=== PATIENT | female | born 1965 | race Caucasian/White ===

== ENCOUNTER 2023-11-27 10:06 | Outpatient (AMB) | payer OTHER, SELFPAY ==
--- NOTE | 2023-11-27 13:37 | MHC.OFFWIV ---
Intake Vital Signs 11/27/23 13:39 Height 6 ft Weight 280 lb BMI 38.0 BP 128/82 Blood Pressure Location Rt brachial Pulse 95 Pulse Source Pulse Oximeter Temp 99.1 F Temp Source Oral Pulse Oximetry (%) 98 Oxygen Delivery Method Room Air Intake Visit Reasons: [employer]/ cough and sob([phone]) Intake Note: Pt is here today c/o coughing, bodyaches, headaches and SOB x10 days Allergies amoxicillin [AMOXICILLIN] Allergy (Unknown, Unverified 11/27/23 13:37) RASH codeine [CODEINE] Allergy (Unknown, Unverified 11/27/23 13:37) RASH gabapentin [GABAPENTIN] Allergy (Unknown, Unverified 11/27/23 13:37) UNKNOWN Do you need a note to return to daycare/school/sports/work: No HPI HPI Comments History of Present Illness Details This is a 58-year-old female with past medical history of hyperlipidemia, obstructive sleep apnea, cervical degenerative disc disease and asthma presenting for evaluation of shortness of breath, headache, cough and body aches that she has had for the past 10 days. Patient does report fevers of 101? for which she has taken Tylenol only. Patient denies having any recent sick contacts. Review of Systems Const All systems reviewed & are unremarkable except as noted in HPI and below Denies chills, Reports fever(s), Reports headache(s), Reports lethargy and Reports malaise Eyes Reports no additional complaints ENT Reports no additional complaints and Reports headache(s) Card Reports no additional complaints and Denies dyspnea Resp Reports cough, Denies hemoptysis, Denies pain with cough and Denies dyspnea Skin/Breast Reports system reviewed and no additional complaints, except as documented Neuro Reports headache(s) Physical Exam Vital Signs: Last Vital Signs Temp 99.1 F 11/27/23 13:39 Pulse 95 11/27/23 13:39 BP 128/82 11/27/23 13:39 Pulse Ox 98 11/27/23 13:39 Oxygen Delivery Method Room Air 11/27/23 13:39 BMI result Body Mass Index 38.0 Const General: cooperative, healthy appearing, comfortable and no acute distress Nutritional Appearance: overweight Orientation/consciousness: patient oriented x3 Limitations: no limitations HEENT Head: Yes normal to inspection Ears: hearing grossly normal bilaterally, external ears normal, TM's normal bilaterally and EAC's normal General nose exam: Normal external nose present Face and sinus: Yes normal facial exam and Yes sinuses nontender Mouth: Normal oral and palatal mucosa present and moist mucous membranes Teeth and gingiva: dentition normal Throat: Yes posterior oropharynx normal and Yes postnasal drainage Eyes Eyelids: Yes eyelids normal Conjunctivae: conjunctivae normal Sclerae: sclerae normal Pupils: Equal, round and reactive pupils present EOM: EOMs intact bilaterally Neck Lymphatic: no lymphadenopathy noted Resp Effort & Inspection: normal respiratory effort, no audible wheezes, Actively coughing, no respiratory distress, not tachypneic and no use of accessory muscles Auscultation: clear to auscultation bilaterally and diminished lung sounds Skin General skin exam: no rashes or lesions noted Neuro General: patient oriented x3 Cranial nerves: Yes Equal, round and reactive pupils present Psych Appearance: grossly normal Mental Status: mental status grossly normal Insight: Good insight present (Psych) Judgement: Good judgement present (Psych) Assessment & Plan Assessment & Plan (1) Febrile illness: Code(s): R50.9 - Fever, unspecified Plan: Tylenol or ibuprofen as needed for fevers. (2) Cough: Code(s): R05.9 - Cough, unspecified Plan: Codeine based cough syrup as needed. (3) Pneumonia: Comment: SARS panel initiated and pending. Code(s): J18.9 - Pneumonia, unspecified organism Qualifiers: Laterality: left Lung location: unspecified part of lung Pneumonia type: due to unspecified organism Qualified Code(s): J18.9 - Pneumonia, unspecified organism Plan: Azithromycin and Cefpodoxime will be prescribed for treatment of this pneumonia. Orders: Orders XR chest 2V Today R05.9 - Cough, unspecified SARS-CoV2/FLU/RSV Today R05.9 - Cough, unspecified Medications: New cefpodoxime must administer with a meal/food 200 mg PO BID 20 tabs 0RF codeine-guaifenesin 10-200 mg/5 mL 10 mL PO Q4-6H PRN 473 mL 0RF cough azithromycin For 250 mg dose pack: take 500 mg today (day 1), then 250 mg for 4 days (days 2-5) PO 6 tabs 0RF codeine-guaifenesin 10-100 mg/5 mL 10 mL PO Q4-6H PRN 118 mL 0RF cough Coding Level of Care Code Est Pt Level 4 (97696) Diagnoses Febrile illness R50.9 Cough R05.9 Pneumonia of left lung due to infectious organism, unspecified part of lung J18.9 Laterality: left Lung location: unspecified part of lung Pneumonia type: due to unspecified organism Time Spent (min) 35
[2023-11-27 13:39] VITALS: BP 128/82; PULSE 95; TEMP 37.3; O2SAT 98; BMI 38.0
== END 2023-11-27 14:49 | disposition home or self-care (01) ==
PROVIDERS: PCP Internal Medicine; Visit Provider Physician Assistant
DX: R50.9 Fever, unspecified (principal); R05.9 Cough, unspecified; J18.9 Pneumonia, unspecified organism
CPT/HCPCS: 99214

== ENCOUNTER 2023-11-27 14:19 | Outpatient (REF) | payer OTHER, SELFPAY ==
--- NOTE | ~2023-11-27 | XR_ITS ---
EXAMINATION: CHEST 2 VIEWS CLINICAL INFORMATION: R05.9 - Cough, unspecified. COMPARISON: No recent pertinent prior studies are available for comparison. TECHNIQUE: PA and lateral views of the chest obtained. FINDINGS: The lungs are well expanded. No focal infiltrate, effusion, edema, or pneumothorax. Cardiac and mediastinal silhouettes are within normal limits for technique. No acute bony abnormality seen. Cervical spine hardware partially visualized. Spinal stimulating leads noted overlying the mid to lower thoracic spine. XR/XR chest 2V IMPRESSION: No evidence of acute disease.
== END 2023-11-27 14:20 | disposition home or self-care (01) ==
LOC: HO.HMGCX 14:19
PROVIDERS: Visit Provider Physician Assistant
DX: R05.9 Cough, unspecified (principal)
CPT/HCPCS: 71046

== ENCOUNTER 2023-11-27 14:21 | Outpatient (REF) | payer OTHER, SELFPAY ==
[2023-11-27 15:56] LABS: Influenza A PCR NEGATIVE (Negative); Influenza B PCR NEGATIVE (Negative); Resp Syncy Virus RNA Qual PCR NEGATIVE (Negative); SARS COV2 PCR INHOUSE NEGATIVE (Negative)
== END 2023-11-27 14:22 | disposition home or self-care (01) ==
LOC: HO.LAB 14:21
PROVIDERS: Visit Provider Physician Assistant
DX: R05.9 Cough, unspecified (principal); Z11.52 Encounter for screening for COVID-19; Z20.828 Contact with and (suspected) exposure to other viral communicable diseases
CPT/HCPCS: 0241U